=== PATIENT | female | born 1975 | race Hispanic/Latino ===

== ENCOUNTER → 2024-10-24 | Outpatient (CLI) | payer OTHER ==
--- NOTE | 2024-10-27 22:06 | HMCIMG ---
EXAM: Sestamibi parathyroid scan INDICATION: Acute recurrent sialoadenitis. REFERENCE EXAMINATION: None. TECHNIQUE: After administration of 26 mCi of Tc99m sestamibi, images were obtained after approximately 15 minutes and after 4 hours. FINDINGS: Thyroid demonstrated normal glandular configuration with symmetrical uptake. Physiologic uptake in the salivary glands. No areas of abnormal focal activity is noted on the immediate or delayed images. IMPRESSION: No areas of abnormal radiotracer uptake seen to suggest a parathyroid adenoma. /[employer]
== END | disposition home or self-care (01) ==
LOC: RAH 12:32
PROVIDERS: ATTEND Physician Assistant
DX: K11.22 Acute recurrent sialoadenitis (principal)
CPT/HCPCS: 78070; A9500